=== PATIENT | female | born 1985 | race Caucasian/White ===

== ENCOUNTER 2016-08-07 14:58 | Inpatient (IN) | payer OTHER ==
[~2016-08-07] VITALS: Ht 177.8 cm; Wt 95.5 kg
[2016-08-07 15:26] VITALS: Ht 177.8 cm; Wt 95.5 kg
[2016-08-07] MEDS ORDERED: PRENAT PO (15:29)
[2016-08-07] MEDS ORDERED: MISOPROSTOL 200 MCG TAB PR PRN (15:30)
[2016-08-07] MEDS ORDERED: METHYLERGONOVINE 0.2 MG INJ IM PRN (15:30)
[2016-08-07] MEDS ORDERED: LACTATED RINGER'S 1,000 ML IV PRN (15:30)
[2016-08-07] MEDS ORDERED: OXYTOCIN 30 UNITS/LR 500 ML IV PRN (15:30)
[2016-08-07] MEDS ORDERED: LIDOCAINE 1% (MPF) 30 ML INJ INJ PRN (15:30)
[2016-08-07] MEDS ORDERED: OXYTOCIN 30 UNITS/LR 500 ML IV SCH ×2 (15:30→17:30)
[2016-08-07] MEDS ORDERED: CARBOPROST 250 MCG INJ IM PRN (15:30)
[2016-08-07] MEDS ORDERED: BUTORPHANOL 2 MG INJ IV PRN (15:30)
[2016-08-07 15:41] LABS: ADD SCAN DIFF NO
[2016-08-07 15:43] LABS: ABNORMAL IP MESSAGE 1; HEMATOCRIT 34.7 % (37.0-47.0); HEMOGLOBIN 12.1 g/dl (12.0-16.0); MEAN CORPUSCULAR HEMOGLOBIN 31.4 pg (29.0-33.0); MEAN CORPUSCULAR HGB CONC 34.9 g/dl (32.0-37.0); MEAN CORPUSCULAR VOLUME 90.1 fl (82.0-101.0); MEAN PLATELET VOLUME 10.8 fl (7.4-10.4); PLATELET COUNT 193 10^3/UL (140-415); RED BLOOD COUNT 3.85 10^6/ul (4.20-5.40); RED CELL DISTRIBUTION WIDTH 13.3 % (11.5-14.5); WHITE BLOOD COUNT 24.7 10^3/ul (4.8-10.8)
[2016-08-07 15:47] LABS: INR 0.92; PROTIME 12.4 Sec (12.2-14.2)
[2016-08-07 15:48] LABS: PARTIAL THROMBOPLASTIN TIME 23.5 Sec (25.0-35.0)
[2016-08-07] MEDS ORDERED: ONDANSETRON 4 MG INJ ONE ×2 (15:48→15:52)
[2016-08-07] MEDS ORDERED: CITRIC ACID/NA CITRATE 30 ML CUP ONE (15:48)
[2016-08-07] MEDS ORDERED: LACTATED RINGER'S 1,000 ML IV ONE (15:49)
[2016-08-07] MEDS ORDERED: CITRIC ACID/NA CITRATE 30 ML CUP PO ONE (16:00)
[2016-08-07] MEDS ORDERED: ZOLPIDEM 5 MG TAB PO PRN (16:00)
[2016-08-07] MEDS ORDERED: ONDANSETRON 4 MG INJ IV PRN (16:00)
[2016-08-07] MEDS ORDERED: NALOXONE (0.4 MG/ML) INJ IV PRN (16:00)
[2016-08-07] MEDS ORDERED: KETOROLAC 30 MG INJ IV PRN (16:00)
[2016-08-07] MEDS ORDERED: ONDANSETRON 4 MG INJ IV ONE (16:00)
[2016-08-07] MEDS ORDERED: HYDROmorphONE 1 MG/ML SYG IV PRN ×2 (16:00)
[2016-08-07] MEDS ORDERED: DIPHENHYDRAMINE 50 MG INJ IV PRN (16:00)
[2016-08-07] MEDS ORDERED: PROCHLORPERAZINE 10 MG INJ IV PRN (16:00)
[2016-08-07] MEDS ORDERED: FENTAnyl 2MCG/ML-ROPIV 0.2% 100 ML ONE (16:01)
[2016-08-07] MEDS: LACTATED RINGER'S 1,000 ML IV SCH ×2 (16:08→20:48)
[2016-08-07 16:55] LABS: LYMPHOCYTES # 1.5 10^3/ul (0.8-2.9); MONOCYTE # 1.7 10^3/ul (0.3-0.9); NEUTROPHIL # 21.2 10^3/ul (1.6-7.5)
--- NOTE | 2016-08-07 16:55 | HP ---
Date/Time of Note Date/Time of Note DATE: 08/07/16 TIME: 16:48 OB - History Hx of Present Free Text/Dictation Pt is a 31yo SABx2 who presents with midwifery team and sub prior from nearby [facility] for pain control. 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 Her cervix began to dilate last night and then this AM at 0500 underwent AROM with clear fluid. SVE at [facility] 4cm with swollen anterior cervical lip and low station (exact SVE unable to be conveyed). Pt felt strong urge to push. Pt has remained afebrile and FWB has been reassuring during intrapartum course. Of note, pt is GBS positive but has been refusing GBS prophylaxis (Clindamycin 2 /2 sensitivities in the setting of PCN allergy). Estimated Due Date: Jul 31, 2016 : 3 Para: 0 Spontaneous : 2 Care: Good Care Obstetrical Complications: None Medical Complications: None Past Family/Social History * Past Medical, Surgical, Family and Obstetric Histories reviewed from chart. Blood Type: A+ Rubella: immune RPR/VDRL: Negative GBS Status: Positive HBsAG: Negative OB Admission Exam Vital Signs Vital Signs 98.2 148/82 (while uncomfortable with contractions)-> 116/68 85 97% Physical Exam HEENT: WNL Lungs: Clear Abdomen: WNL Extremities: Edema (trace bilateral lower extremity, nontender) Cervical Dilatation: 3cm Effacement: Other (70%) Station: 0 Membranes: Ruptured Amniotic Fluid: Thin Meconium Heart Rate: 150's Accelerations: Accelerations Present Decelerations: No Decelerations Varibility: Moderate Contractions on Admission: < 5 Minutes Apart Intensity: Moderate Last 72 hours Lab Results CBC & BMP 08/07/16 15:00 OB Assessment/Plan Other Assessment: Pain Control Labor Augmentation Other plan: 1) Labor: Discussed with pt, her partner, her friends and midwifery team recommendations to achieve comfort with the epidural followed by Pitocin for augmentation. Will titrate per protocol and assess for cervical change. 2) ID: Pt remains afebrile, without maternal or tachycardia and no signs of chorioamnionitis. Will try and limit SVEs given pt in early labor and now nearly 12hrs s/p AROM. Strongly recommended initiating IV Abx for GBS ppx. At this time, the pt is not amenable to starting Abx. Risks of infection/GBS sepsis and possible sequelae discussed with pt and partner and questions answered to their satisfaction. 3) FWB: FWB remains reassuring. Category 1 FHT. CEFM and [place] 4) Pain: Now comfortable with epidural Plan d/w pt and all involved. Questions answered from multiple support persons. Will proceed with plan as documented. HANG MACKEY MD Aug 07, 2016 16:55
[2016-08-07 16:56] LABS: PLATELET ESTIMATE PLT APPEAR ADEQUATE
[2016-08-07] MEDS: CLINDAMYCIN 900 MG/D5W (PMX) 50 ML IV SCH (18:33)
[2016-08-07] MEDS ORDERED: DIPHENHYDRAMINE 50 MG INJ IM ONE (19:30)
[2016-08-07] MEDS: FENTAnyl 2MCG/ML-ROPIV 0.2% 100 ML BAG EPI SCH (22:36)
[2016-08-08] MEDS: CLINDAMYCIN 900 MG/D5W (PMX) 50 ML IV SCH (02:21)
[2016-08-08] MEDS: LACTATED RINGER'S 1,000 ML IV SCH ×2 (04:16→06:23)
[2016-08-08] MEDS: FENTAnyl 2MCG/ML-ROPIV 0.2% 100 ML BAG EPI SCH (04:58)
[2016-08-08 07:33] VITALS: BP 117/68; PULSE 80; RESP 20
[2016-08-08] MEDS ORDERED: MINERAL OIL 30ML CUP PO ONE (11:00)
[2016-08-08] MEDS ORDERED: IBUPROFEN 600 MG TAB PO PRN (12:00)
--- NOTE | 2016-08-08 12:04 | LDN ---
Date/Time of Note Date/Time of Note DATE: 08/08/16 TIME: 11:58 Delivery Summary August 08, 2016 Delivery report Laboratory Tests Test 08/07/16 15:00 08/07/16 17:00 White Blood Count 24.710^3/ul Red Blood Count 3.8510^6/ul Hemoglobin 12.1g/dl Hematocrit 34.7% Mean Corpuscular Volume 90.1fl Mean Corpuscular Hemoglobin 31.4pg Mean Corpuscular Hemoglobin Concent 34.9g/dl Red Cell Distribution Width 13.3% Platelet Count 99941^3/UL Mean Platelet Volume 10.8fl Neutrophils % 86.0% Band Neutrophils % 1.0% Lymphocytes % 6.0% Monocytes % 7.0% Neutrophils # 21.210^3/ul Lymphocytes # 1.510^3/ul Monocytes # 1.710^3/ul Platelet Estimate PLT APPEAR ADEQUATE Prothrombin Time 12.4Sec Prothrombin Time Ratio 1.0 INR International Normalized Ratio 0.92 Activated Partial Thromboplast Time 23.5Sec Hepatitis B Surface Antigen NEGATIVE Current Medications Medications (Trade) Dose Ordered Sig/Anand Route PRN Reason Start Time Stop Time Status Last Admin Dose Admin Lactated Ringer's 1,000 ml @ 125 mls/hr Q8H IV 08/07/16 15:30 08/08/16 06:23 Clindamycin HCl/ Dextrose (Cleocin 900 Mg/ D5W (Pmx)) 50 ml @ 100 mls/hr Q8H IV 08/07/16 18:30 08/08/16 02:21 Butorphanol Tartrate (Stadol) 2 mg Q2H PRN IV PAIN 08/07/16 15:30 Lidocaine 30 ml 30 ml ONCE PRN INJ EPISIOTOMY/TEARING 08/07/16 15:30 Oxytocin/Lactated Ringer's 500 ml @ 125 mls/hr ONCE -MAY REPEAT X1 IV 08/07/16 15:30 Oxytocin/Lactated Ringer's 500 ml @ 125 mls/hr ONCE IV 08/07/16 15:30 Lactated Ringer's 1,000 ml @ 2,000 mls/hr Q30M PRN IV PRE-EPIDURAL BOLUS 08/07/16 15:30 Oxytocin/Lactated Ringer's 500 ml @ 0 mls/hr ONCE PRN IV For Hemorrhage Management 08/07/16 15:30 Methylergonovine Maleate (Methergine) 0.2 mg ONCE PRN IM VAGINAL BLEEDING 08/07/16 15:30 08/08/16 11:25 Carboprost Tromethamine (Hemabate) 250 mcg ONCE PRN IM VAGINAL BLEEDING 08/07/16 15:30 Misoprostol (Cytotec) 1,000 mcg ONCE PRN [place] VAGINAL BLEEDING 08/07/16 15:30 Citric Acid/ Sodium Citrate (Bicitra) 30 ml STK-MED ONCE .ROUTE 08/07/16 15:48 08/07/16 15:49 DC Ondansetron HCl 4 mg 4 mg STK-MED ONCE .ROUTE 08/07/16 15:48 08/07/16 15:49 DC Lactated Ringer's (Lr) 1,000 ml @ 1,000 mls/hr Q1H ONCE IV 08/07/16 15:49 08/07/16 16:48 DC Ondansetron HCl (Zofran Inj) 4 mg pre-procedure ONCE IV 08/07/16 16:00 08/07/16 16:01 DC 08/07/16 16:08 Citric Acid/ Sodium Citrate (Bicitra) 30 ml pre-procedure ONCE PO 08/07/16 16:00 08/07/16 16:01 DC 08/07/16 16:08 Ondansetron HCl (Zofran Inj) 4 mg STK-MED ONCE .ROUTE 08/07/16 15:52 08/07/16 15:53 DC Naloxone HCl (Narcan) 0.1 mg Q2M PRN IV FOR RESP RATE 8 OR LESS 08/07/16 16:00 08/08/16 15:59 Ketorolac Tromethamine (Toradol) 30 mg Q6H PRN IV PAIN 08/07/16 16:00 08/08/16 15:59 Diphenhydramine HCl (Benadryl) 25 mg Q6H PRN IV ITCHING 08/07/16 16:00 08/08/16 15:59 Ondansetron HCl (Zofran Inj) 4 mg Q6H PRN IV NAUSEA AND/OR VOMITING 08/07/16 16:00 08/08/16 15:59 Prochlorperazine (Compazine Inj) 10 mg ONCE PRN IV NAUSEA AND/OR VOMITING 08/07/16 16:00 08/08/16 15:59 Zolpidem Tartrate (Ambien) 5 mg HS MAY REPEAT X 1 PRN PO INSOMNIA 08/07/16 16:00 08/08/16 15:59 Fentanyl/ Ropivacaine 100 ml EPIDURAL INFUSION EPI 08/07/16 16:00 08/08/16 04:58 Hydromorphone HCl (Dilaudid) 0.2 mg Q3H PRN IV PAIN LEVEL 1-5 08/07/16 16:00 08/08/16 15:59 Hydromorphone HCl 0.4 mg 0.4 mg Q3H PRN IV PAIN LEVEL 6-10 08/07/16 16:00 08/08/16 15:59 Fentanyl/ Ropivacaine 100 ml @ ud STK-MED ONCE .ROUTE 08/07/16 16:01 08/07/16 16:02 DC Oxytocin/Lactated Ringer's 500 ml @ 0 mls/hr Q0M IV 08/07/16 17:30 08/07/16 17:35 Diphenhydramine HCl (Benadryl) 12.5 mg ONCE ONCE IM 08/07/16 19:30 08/07/16 19:31 DC Mineral Oil (Mineral Oil) 30 ml ONCE ONCE PO 08/08/16 11:00 08/08/16 11:01 DC Ibuprofen (Motrin) 600 mg ONCE PRN PO Mild Pain (Pain Score 1-3) 08/08/16 12:00 08/08/16 11:50 Weeks of Gestation Her EDC is 07/31/2016 hematocrit 41 weeks and 5 days this patient is a 31 years old 3 para 0 2 with EDC of 07/31/2016 who came to the hospital yesterday in labor with rupture membranes under epidural anesthesia and Pitocin augmentation she made a progress to complete dilatation and had a spontaneous vaginal delivery this morning The meconium-stained was thick Her blood loss was around 300 cc Placenta Delivered: Spontaneously Meconium: Thick Episiotomy: No Anesthesia type: Epidural Estimated blood loss: 300 Sponge & Needle done & correct: Yes All needle counts correct: Yes Any foreign bodies felt in the: No Problems: Delivery Information Sex Sex: female Apgars 1 Minute: 8 5 Minute: 9 Suctioning Nose & mouth suctioned at junior: Yes Delee suction performed: Yes Umbilical Cord Umbilical cord with: 3 Vessels Cord presentations: no nuchal cord Cord Blood was obtained: Yes Mother & Baby Disposition Disposition Mom & Baby to Maternity; Good: Yes Baby to NICU: No LOU FAULKNER MD Aug 08, 2016 12:04
[2016-08-08] MEDS: OXYTOCIN 30 UNITS/LR 500 ML IV SCH ×4 (13:00→18:01)
[2016-08-08 14:15] VITALS: BP 139/96; PULSE 80; RESP 18
[2016-08-08] MEDS ORDERED: WITCH HAZEL/GLYCERIN PAD PR PRN (14:30)
[2016-08-08] MEDS ORDERED: SENNA/DOCUSATE NA (8.6MG/50MG) TAB PO PRN (14:30)
[2016-08-08] MEDS ORDERED: METHYLERGONOVINE 0.2 MG INJ IM PRN (14:30)
[2016-08-08] MEDS ORDERED: MISOPROSTOL 200 MCG TAB PR PRN (14:30)
[2016-08-08] MEDS ORDERED: ACETAMINOPHEN 500 MG TAB PO PRN (14:30)
[2016-08-08] MEDS ORDERED: OXYTOCIN 30 UNITS/LR 500 ML IV PRN (14:30)
[2016-08-08] MEDS ORDERED: CARBOPROST 250 MCG INJ IM PRN (14:30)
[2016-08-08] MEDS ORDERED: DIBUCAINE 1% 30 GM OINT PR PRN (14:30)
[2016-08-08] MEDS ORDERED: LANOLIN 7 GM TUBE TOP PRN (14:30)
[2016-08-08] MEDS ORDERED: BENZOCAINE 20% 56 ML SPRAY TOP PRN (14:30)
[2016-08-08] MEDS ORDERED: OXYCODONE/ASPIRIN (4.88/325) TAB PO PRN ×2 (14:30)
[2016-08-08 16:30] VITALS: BP 115/76; PULSE 79; RESP 16
[2016-08-08] MEDS: IBUPROFEN 600 MG TAB PO PRN (18:17)
[2016-08-08 20:00] VITALS: BP 110/58; PULSE 72; RESP 19
[2016-08-09 00:30] VITALS: BP 111/56; PULSE 73; RESP 18
[2016-08-09] MEDS: IBUPROFEN 600 MG TAB PO PRN ×4 (00:38→17:16)
[2016-08-09 04:45] VITALS: BP 111/61; PULSE 68; RESP 18
[2016-08-09] MEDS: MULTIVIT/MIN/FOLATE/IRON/PREN TAB PO SCH ×2 (08:27→09:00)
[2016-08-09 08:30] VITALS: BP 131/78; PULSE 90; RESP 19
--- NOTE | 2016-08-09 09:18 | QN ---
Documentation Comment PPD#1 Doing well. Ambulating, voiding, soheila POs w/o difficulty. Pain c/w PO meds VS 97.8 111/61 68 18 Gen: well appearing, NAD CV: RRR, nl s1s2 Resp: CTAB Abd: soft, NTND, FF at umbilicus Ext: BLE symmetric, nontender, no edema Labs Admission Hgb 12.1 -> EBL 300ml -> declined AM CBC A/P: s/p w/intact perineum Continue routine care support, consult offered and pt declined 2/2 receiving assistance from midwifery team Anticipate d/c home on PPD#2, sooner pending early discharge HANG MACKEY MD Aug 09, 2016 09:18
[2016-08-09 16:20] VITALS: BP 112/61; PULSE 70; RESP 18
--- NOTE | 2016-08-09 17:21 | PD.PPDC ---
[employer] Discharge Instruction Diagnosis Final Diagnosis: Term normal spontaneous vaginal delivery Condition Patient Condition: Good Diet Diet: Resume Regular Diet Activity/Restrictions Activity: Normal Activity Restrictions: No Sexual Activity Nothing in the Vagina No [place] No Tampons, douche Follow-up Follow-up with Physician: 2, Week/Weeks Return to clinic for CLOUD ARCHITECT Instructions: Fever greater than 101 Chills Worsening abdominal pain Excessive Vaginal Bleeding More than 2 pads per hour Unable to tolerate diet OB Instructions: Breast Tenderness Depression Blurried Vision Headache HANG MACKEY MD Aug 09, 2016 17:21
--- NOTE | 2016-08-09 17:23 | DS ---
Date/Time of Note Date/Time of Note DATE: 08/09/16 TIME: 17:21 Obstetrical Discharge Record Final Diagnosis Final Diagnosis: Term delivered Vaginal Delivery Obstetrical Delivery: Spontaneous Complications Augmentation: Yes Rupture of Membranes: No Gestational Age at Rupture 41+0 Condition on Discharge Physical Assessment Last Vitals: 98.0 131/78 90 19 Voiding: Yes Fundus: Firm Calf Tenderness: No Patient Condition: Good HANG MACKEY MD Aug 09, 2016 17:23
[2016-08-10] MEDS ORDERED: DIPHTH/TET/ACEL PERTUSS (ADULT) 0.5 ML VIAL IM* ONE (09:00)
== END 2016-08-09 18:35 | disposition home or self-care (01) | DRG 775 ==
LOC: L-D 14:58 → PP1 08-08 14:05
PROVIDERS: ADMIT Obstetrics & Gynecology; ATTEND Obstetrics & Gynecology
PROC: 10E0XZZ Delivery of Products of Conception, External Approach (ICD-10-PCS; principal; 2016-08-08)
DX: O48.0 Post-term pregnancy (principal); Z37.0 Single live birth; Z3A.41 41 weeks gestation of pregnancy
CPT/HCPCS: 62319; 85025; 85610; 85730; 86592; 86900; 86901; 87340; 99464; J2210; J2405; J2590; J3010; J7120